=== PATIENT | female | born 1945 | race Caucasian/White ===

== ENCOUNTER → 2016-09-28 | Outpatient (CLI) | payer OTHER ==
[~2016-09-28] MED LIST: AMARYL 2MG TABLE2 MG PO; AMBIEN5 MG PO; ASPIR 8181 MG PO; ASPIR-LOW81 MG PO; ASPIRIN CHEWABL81 MG PO; BENADRYL 25MG C25 MG PO; CATAPRES 0.1MG0.1 MG PO; COLACE 100MG C100 MG PO; COLACE100 MG PO; COREG6.25 MG PO; CYCLOSPORINE100 MG PO; CYMBALTA30 MG PO; FISH OIL 10001000 MG PO; FOSINOPRIL SODI40 MG PO; GLIMEPIRIDE1 MG PO; HYDRALAZINE HCL50 MG PO; HYDROCHLOROTH12.5 MG PO; HYDROCHLOROTHIA25 MG PO; KLONOPIN TAB 00.5 MG PO; LIPITOR TAB 2020 MG PO; LISINOPRIL40 MG PO; MELATONIN10 MG PO; OMEPRAZOLE20 MG PO; ONE DAILY FOR1 EAC1 PO; POTASSIUM GLUCONATE PO; PROTONIX40 MG PO; REMERON15 MG PO; SIMVASTATIN40 MG PO; SINEMET 10-1001 EACH PO; SYNTHROID100 MCG PO; TENORMIN 25 MG25 MG PO; TENORMIN 50 MG50 MG PO; TOBREX 0.3% OP; TRESIBA SC; TYLENOL 325MG325 MG PO; VITAMIN B-1000 MCG/M IM; ZESTRIL5 MG PO; ZYLOPRIM 100 M100 MG PO; [UNRECOGNIZED DRUG - OTHER] OP
== END ==
DX: N17.9 Acute kidney failure, unspecified (principal)
CPT/HCPCS: 36415; 80158

== ENCOUNTER 2016-10-17 03:04 | Emergency (ER) | payer OTHER ==
[~2016-10-17 03:04] MED LIST changes: -ASPIRIN CHEWABL81 MG PO; -BENADRYL 25MG C25 MG PO; -FISH OIL 10001000 MG PO; -TOBREX 0.3% OP; -[UNRECOGNIZED DRUG - OTHER] OP
[2016-10-17 03:39] LABS: HEMOGLOBIN 8.8 gm/dl (12.3-15.3); RED BLOOD COUNT 2.87 M/UL (4.00-5.10); WHITE BLOOD COUNT 4.7 K/UL (4.5-11.0)
== END 2016-10-17 08:30 | disposition home or self-care (01) ==
LOC: ER1 03:04
PROVIDERS: Emergency Medicine
DX: R07.9 Chest pain, unspecified (principal); I10 Essential (primary) hypertension; K59.00 Constipation, unspecified; R11.0 Nausea; D64.9 Anemia, unspecified; E11.9 Type 2 diabetes mellitus without complications; Z88.1 Allergy status to other antibiotic agents; Z88.2 Allergy status to sulfonamides; Z90.49 Acquired absence of other specified parts of digestive tract
CPT/HCPCS: 36415; 71010; 80053; 81001; 82272; 82550; 82553; 83605; 83690; 83874; 84484; 85025; 87086; 93005; 96374; 96375; 99284; J2405; J2550

== ENCOUNTER 2016-10-19 11:37 | Emergency (ER) | payer OTHER ==
[2016-10-19 17:05] LABS: HEMOGLOBIN 8.3 gm/dl (12.3-15.3); RED BLOOD COUNT 2.67 M/UL (4.00-5.10)
[2016-10-19 17:10] LABS: WHITE BLOOD COUNT 6.3 K/UL (4.5-11.0)
== END 2016-10-19 19:45 | disposition home or self-care (01) ==
LOC: ER1 11:37
PROVIDERS: Specialist/Technologist Athletic Trainer
DX: N39.0 Urinary tract infection, site not specified (principal); E11.9 Type 2 diabetes mellitus without complications; Z88.2 Allergy status to sulfonamides; Z88.1 Allergy status to other antibiotic agents; Z90.49 Acquired absence of other specified parts of digestive tract
CPT/HCPCS: 36415; 80053; 81001; 85025; 87077; 87086; 87186; 99284

== ENCOUNTER → 2016-11-15 | Outpatient (CLI) | payer OTHER ==
[~2016-11-15] MED LIST changes: +ASPIRIN CHEWABL81 MG PO; +BENADRYL 25MG C25 MG PO; +FISH OIL 10001000 MG PO; +TOBREX 0.3% OP; +[UNRECOGNIZED DRUG - OTHER] OP
[2016-11-15 11:35] LABS: HEMOGLOBIN 8.8 gm/dl (12.3-15.3); RED BLOOD COUNT 2.78 M/UL (4.00-5.10); WHITE BLOOD COUNT 4.5 K/UL (4.5-11.0)
== END ==
LOC: LAB 10:49
PROVIDERS: Emergency Medicine
DX: E11.29 Type 2 diabetes mellitus with other diabetic kidney complication (principal); E11.65 Type 2 diabetes mellitus with hyperglycemia; E11.69 Type 2 diabetes mellitus with other specified complication; E11.9 Type 2 diabetes mellitus without complications; E53.9 Vitamin B deficiency, unspecified; E55.9 Vitamin D deficiency, unspecified; E78.2 Mixed hyperlipidemia; F32.89 Other specified depressive episodes; F41.1 Generalized anxiety disorder; G44.89 Other headache syndrome; I10 Essential (primary) hypertension; J20.9 Acute bronchitis, unspecified; K59.09 Other constipation; M10.00 Idiopathic gout, unspecified site; N18.3 Chronic kidney disease, stage 3 (moderate); R10.11 Right upper quadrant pain; R10.13 Epigastric pain; R10.814 Left lower quadrant abdominal tenderness; R53.83 Other fatigue; R80.8 Other proteinuria
CPT/HCPCS: 36415; 80053; 80061; 83036; 83704; 85027

== ENCOUNTER 2016-11-24 13:55 | Emergency (ER) | payer OTHER ==
[~2016-11-24 13:55] MED LIST changes: -ASPIRIN CHEWABL81 MG PO; -BENADRYL 25MG C25 MG PO; -FISH OIL 10001000 MG PO; -TOBREX 0.3% OP; -[UNRECOGNIZED DRUG - OTHER] OP
== END 2016-11-24 18:30 | disposition home or self-care (01) ==
LOC: ER1 13:55
PROVIDERS: Specialist/Technologist Athletic Trainer
DX: R55 Syncope and collapse (principal); E86.0 Dehydration; E11.22 Type 2 diabetes mellitus with diabetic chronic kidney disease; N18.9 Chronic kidney disease, unspecified; Z88.1 Allergy status to other antibiotic agents; Z90.49 Acquired absence of other specified parts of digestive tract
CPT/HCPCS: 36415; 80053; 93005; 96361; 96374; 99284; J2405; J7040

== ENCOUNTER → 2016-12-01 | Outpatient (CLI) | payer OTHER ==
[~2016-12-01] MED LIST changes: +ASPIRIN CHEWABL81 MG PO; +BENADRYL 25MG C25 MG PO; +FISH OIL 10001000 MG PO; +TOBREX 0.3% OP; +[UNRECOGNIZED DRUG - OTHER] OP
== END ==
LOC: LAB 13:12
DX: E11.65 Type 2 diabetes mellitus with hyperglycemia (principal); E78.2 Mixed hyperlipidemia; I10 Essential (primary) hypertension; R80.8 Other proteinuria; R53.83 Other fatigue; E53.9 Vitamin B deficiency, unspecified
CPT/HCPCS: 36415; 82728; 83540; 83550; 84443

== ENCOUNTER 2017-01-06 13:16 | Observation (INO) | payer OTHER ==
[~2017-01-06] VITALS: Ht 170.2 cm; Wt 74.8 kg
[~2017-01-06 13:16] MED LIST changes: -ASPIRIN CHEWABL81 MG PO; -BENADRYL 25MG C25 MG PO; -FISH OIL 10001000 MG PO; -TOBREX 0.3% OP; -[UNRECOGNIZED DRUG - OTHER] OP
[2017-01-06 13:58] LABS: HEMOGLOBIN 7.6 gm/dl (12.3-15.3); RED BLOOD COUNT 2.44 M/UL (4.00-5.10); WHITE BLOOD COUNT 4.3 K/UL (4.5-11.0)
[2017-01-06 22:49] LABS: HEMOGLOBIN 8.1 gm/dl (12.3-15.3)
[2017-01-07] MEDS ORDERED: BENADRYL 25MG C25 MG PO (01:37)
[2017-01-07] MEDS ORDERED: ASPIRIN CHEWABL81 MG PO (01:37)
[2017-01-07] MEDS ORDERED: FISH OIL 10001000 MG PO (01:38)
[2017-01-07 14:51] LABS: HEMOGLOBIN 10.3 gm/dl (12.3-15.3)
[2017-01-07] MEDS ORDERED: VITAMIN B-1000 MCG/M IM (19:30)
[2017-01-07] MEDS ORDERED: TOBREX 0.3% OP (19:31)
[2017-01-07] MEDS ORDERED: [UNRECOGNIZED DRUG - OTHER] OP (19:31)
== END 2017-01-07 20:16 | disposition home or self-care (01) ==
LOC: ER1 13:16 → M/S 17:09 → ZEROF 17:09 → M/S 21:57
PROVIDERS: Emergency Medicine; ADMIT Emergency Medicine
DX: R55 Syncope and collapse (principal); D61.818 Other pancytopenia; D64.9 Anemia, unspecified; R11.0 Nausea; E11.9 Type 2 diabetes mellitus without complications; I12.9 Hypertensive chronic kidney disease with stage 1 through stage 4 chronic kidney disease, or unspecified chronic kidney disease; N18.3 Chronic kidney disease, stage 3 (moderate); J44.9 Chronic obstructive pulmonary disease, unspecified; I67.1 Cerebral aneurysm, nonruptured; N26.9 Renal sclerosis, unspecified; D47.2 Monoclonal gammopathy; K21.9 Gastro-esophageal reflux disease without esophagitis; M81.0 Age-related osteoporosis without current pathological fracture; E55.9 Vitamin D deficiency, unspecified; E78.5 Hyperlipidemia, unspecified; Z91.041 Radiographic dye allergy status; Z88.2 Allergy status to sulfonamides; Z88.8 Allergy status to other drugs, medicaments and biological substances; Z85.828 Personal history of other malignant neoplasm of skin; Z86.73 Personal history of transient ischemic attack (TIA), and cerebral infarction without residual deficits
CPT/HCPCS: ECHO; 36415; 36430; 70450; 70551; 71020; 80053; 80061; 81001; 82550; 82553; 82607; 82728; 82962; 83540; 83550; 83690; 83874; 84443; 84484; 85014; 85018; 85025; 85610; 85730; 86850; 86900; 86901; 86920; 87086; 93005; 93306; 93880; 96372; 96374; 99285; C9113; G0378; J2405; J3420; P9016; Q0163

== ENCOUNTER → 2017-04-18 | Outpatient (CLI) | payer OTHER ==
[~2017-04-18] MED LIST changes: +ASPIRIN CHEWABL81 MG PO; +BENADRYL 25MG C25 MG PO; +FISH OIL 10001000 MG PO; +TOBREX 0.3% OP; +[UNRECOGNIZED DRUG - OTHER] OP
== END ==
LOC: KOH-I 12:11
DX: J40 Bronchitis, not specified as acute or chronic (principal)
CPT/HCPCS: 71020